=== PATIENT | male | born 1990 | race Caucasian/White ===

== ENCOUNTER 2022-11-12 09:54 | Emergency (ER) | payer OTHER, SELFPAY ==
[2022-11-12 10:01] VITALS: BP 143/89; PULSE 75; RESP 16; TEMP 36.5; O2SAT 98
--- NOTE | 2022-11-12 10:08 | ED.EYEPROB ---
HPI - Eye Problem General Chief complaint: Eye Problems Stated complaint: left eye pain Time Seen by Provider: 11/12/22 10:10 Source: patient Mode of arrival: ambulatory Limitations: no limitations History of Present Illness HPI Narrative: 32 y/o male presented for c/o left eye irritation with frequent tearing for 2 days. Denies injury or trauma. 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 Denies photophobia, purulent drainage, headache, or fb sensation. Pain ranges from 3-6/10. Not taking anything for symptoms. chief complaint: eye pain Related Data Allergies Allergy/AdvReac Type Severity Reaction Status Date / Time No Known Allergies Allergy Unverified 11/12/22 10:04 Review of Systems Review of Systems: CONSTITUTIONAL: Denies body aches, fever, chills EYES:Endorses left eye tearing; denies FB sensation, photophobia, swelling, redness, visual changes ENT: Denies rhinorrhea, congestion, sore throat, or otalgia. CARDIOVASCULAR: Denies chest pain, palpitations RESPIRATORY: Denies cough or dyspnea. SKIN: Denies rash, itching, or wounds. MUSCULOSKELETAL: Denies back pain, joint pain, or myalgia. NEUROLOGIC: Denies headache, numbness, tingling, or weakness. All systems reviewed & are unremarkable except as noted in HPI and below PMFSH Past Medical History Medical History (Updated 11/12/22 @ 11:01 by Mary Sofia APRN) No pertinent past medical history Comments At time of signature, I have reviewed and agree with nursing past medical, surgical, social and family history unless otherwise noted. Please see nursing chart for further information. There is no relevant family history pertinent to the presenting complaint Exam Narrative: GENERAL: Well-appearing HEAD: Normocephalic, atraumatic. EYES: Mild left conjunctival injection, Frequent tearing; No purulent drainage, eye lid swelling/redness. PERRLA, EOMI. Lid eversion shows <1mm brown corneal FB just lateral to pupil. No other corneal injury ENT: Mucous membranes pink and moist. No rhinorrhea. Throat normal. Uvula midline. CHEST: Clear to auscultation. HEART: Regular rate and rhythm. ABDOMEN: Soft, nontender, nondistended SKIN: Warm, dry, no rash. Normal skin turgor. NEURO: No focal deficits. Alert and oriented x3 Course Course Emergency Course: Patient is aware of diagnosis, understands and agrees to treatment plan. Anticipatory guidance given. Patient agrees to follow-up as directed and is aware of reasons to seek care at the emergency department. Portions of this record may have been created with voice recognition software Level of Care: Express Care Visit Vital Signs Vital signs: Vital Signs Temperature 97.7 F 11/12/22 10:01 Pulse Rate 75 11/12/22 10:01 Respiratory Rate 16 11/12/22 10:01 Blood Pressure 143/89 H 11/12/22 10:01 Pulse Oximetry 98 11/12/22 10:01 Temperature 97.7 F 11/12/22 10:01 Pulse Rate 75 11/12/22 10:01 Respiratory Rate 16 11/12/22 10:01 Blood Pressure 143/89 H 11/12/22 10:01 Pulse Oximetry 98 11/12/22 10:01 Procedures FB Removal Eye Foreign Body #1: Foreign Body Removal Date: 11/12/22 Time Out performed: Yes Location: eye (L) Topical anesthetic used: tetracaine Foreign body: other (unspecified) Technique: eye wash bottle and cotton tip swab Procedure performed under: other (brewer lamp) Patient tolerated procedure: well and no complications Complications: incomplete foreign body removal Foreign Body Removal Narrative: Unable to successfully remove the corneal FB. MDM - Eye Problem MDM Narrative Medical decision making narrative: Discussed physical exam findings. Patient is aware of unsuccessful removal of the left corneal FB. Patient is well appearing, he has an ophtho he will call tomorrow to schedule appt. Rx abx and Ketoralac. Advised supportive yoandy
== END 2022-11-12 10:39 | disposition home or self-care (01) ==
PROVIDERS: Emergency Provider Nurse Practitioner Family; PCP Internal Medicine
DX: T15.02XA Foreign body in cornea, left eye, initial encounter (principal); X58.XXXA Exposure to other specified factors, initial encounter
CPT/HCPCS: 65220; 99213; A9270; G0463

== ENCOUNTER 2023-03-22 12:19 | Emergency (ER) | payer OTHER, SELFPAY ==
--- NOTE | 2023-03-22 12:22 | ED.ABDPAIN ---
HPI - Abdominal Pain General Chief Complaint: Urogenital-Male Stated Complaint: Kidney stone Source: patient and RN notes reviewed Mode of arrival: ambulatory Limitations: no limitations History of Present Illness HPI narrative: Patient is a 32-year-old male who presents to the [facility] with complaints of left flank pain radiating into the left groin. The pain is a constant dull ache with intermittent stabbing pains that are moderately severe. Patient states that the pains started this morning in the left flank and has now radiated down into his left groin. He states that these symptoms are similar to that he experienced with a prior kidney stone. Patient states that he was seen in the ED for prior kidney stone and given medications and instructed to follow up outpatient. Patient states that he was given pain medication and Flomax at that time. He is requesting these medications today. He states that he would like to attempt to pass the stone on his own with help of medication. States that he does not want to go to the ED at this time. He reports decreased urination but states he is still able to urinate. He denies known hematuria. Denies recent fevers. He does report some nausea with emesis earlier today. Denies diarrhea. Related Data Allergies Allergy/AdvReac Type Severity Reaction Status Date / Time No Known Allergies Allergy Unverified 03/22/23 12:25 Review of Systems Review of Systems: CONSTITUTIONAL: Denies fever, chills, or sweats. EYES: Denies visual changes, redness, or discharge. ENT: Denies otalgia and sore throat. CARDIOVASCULAR: Denies chest pain, palpitations, or edema. RESPIRATORY: Denies cough or dyspnea. GASTROINTESTINAL: Reports left lower abdominal pain, nausea, vomiting. Denies diarrhea. GENITOURINARY: Denies dysuria or hematuria. Reports decreased urination. Reports left flank pain and left groin pain. SKIN: Denies rash or itching. MUSCULOSKELETAL: Denies joint pain or myalgia. NEUROLOGIC: Denies headache, numbness, or weakness. Pertinent positives per HPI. [facility] Past Medical History Medical History No pertinent past medical history Comments At the time of my signature, I reviewed and agree with the nursing past medical, surgical, social, and family history. There is no relevant family history pertinent to the patient complaint. Exam Narrative: GENERAL: This is a well-nourished, well-developed patient, in no apparent distress. HEAD: normocephalic, atraumatic. EYES: PERRL. Sclera clear/white. Vision is grossly intact. EARS: External ears normal, auditory canals clear and without drainage, TMs normal without perforation. Hearing grossly intact. NOSE: External nose normal with no obvious nasal discharge, nares without redness, no rhinorrhea. THROAT: Mucous membranes moist, posterior pharynx clear. NECK: Neck supple, non-tender without lymphadenopathy, masses or thyromegaly. CARDIOVASCULAR: Regular rate and rhythm without murmurs, gallops, or rubs. RESPIRATORY: Clear to auscultation. Breath sounds equal bilaterally. No wheezes, rales, or rhonchi. GASTROINTESTINAL: Abdomen soft, nondistended. Tenderness to left groin. Bowel sounds are active. No hepato-splenomegaly, or palpable masses. No guarding. SKIN: warm, intact with no suspicious lesions or rash, good texture and turgor. NEURO: awake, alert, and oriented to person, place and time. There were no obvious focal neurologic abnormalities. EXTREMITIES: No clubbing, cyanosis, or edema. No joint tenderness, effusion, or edema noted. BACK: Left flank tenderness. Course Course Level of Care: Express Care Visit Vital Signs Vital signs: Vital Signs Temperature 98.4 F 03/22/23 12:27 Pulse Rate 80 03/22/23 12:27 Respiratory Rate 20 03/22/23 12:27 Blood Pressure 162/92 H 03/22/23 12:27 Pulse Oximetry 98 03/22/23 12:27 Temperature 98.4 F 03/22/23 12:27 Pulse R
[2023-03-22 12:27] VITALS: BP 162/92; PULSE 80; RESP 20; TEMP 36.9; O2SAT 98
== END 2023-03-22 12:42 | disposition home or self-care (01) ==
PROVIDERS: Emergency Provider Nurse Practitioner; PCP Internal Medicine
DX: N20.0 Calculus of kidney (principal)
CPT/HCPCS: 81003; 99213; G0463

== ENCOUNTER 2023-03-22 13:02 | Emergency (ER) | payer OTHER, SELFPAY ==
--- NOTE | ~2023-03-22 | CT_ITS ---
EXAMINATION: CT abdomen pelvis wo con DATE: 03/22/2023 13:46 INDICATION: Left lower quadrant abdominal pain. Nausea. TECHNIQUE: Computed tomography (CT) of the abdomen and pelvis was performed without intravenous contr ast. Automated exposure control and iterative reconstruction technique were employed. The dose-length product was 1704.25 mGy-cm. COMPARISON: CT abdomen and pelvis 09/23/2018 FINDINGS: The visualized portions of the lung bases demonstrate minimal atelectasis. No pleural effus ion. The heart size is normal. No pericardial effusion. There is diffuse hepatic steatosis. The gallb ladder, spleen, pancreas, adrenal glands, and right kidney are normal. There is mild left hydronephro sis. There is a 5 mm stone in proximal left ureter. There are no dilated loops of bowel. The appendix is normal. There are no pathologically enlarged lymph nodes. There is no free intraperitoneal fluid. There is mild thoracic and lumbar spondylosis. IMPRESSION: 1. 5 mm stone in proximal left ureter with mild left hydronephrosis. Reviewed, dictated and finalized at location E.
[2023-03-22 13:03] VITALS: BP 195/94; PULSE 78; RESP 18; TEMP 36.4; O2SAT 100
[2023-03-22 13:23] LABS: Basophils Absolute Auto 0.1 K/mm3 (0.0-0.1); Basophils Percent Auto 0.3 % (0.2-1.2); Eosinophils Percent Auto 0.1 % (0-4.4); Hematocrit 48.3 % (42.0-52.0); Hemoglobin 16.8 g/dL (14.0-18.0); Immature Granulocyte Absolute 0.12 K/mm3 (0.00-0.031); Immature Granulocyte Percent A 0.7 % (0-0.5); Lymphocytes Percent Auto 14.9 % (18.3-44.2); Mean Corpuscular HGB Conc 34.8 g/dl (32-36); Mean Corpuscular Hemoglobin 30.1 pg (26-34); Mean Corpuscular Volume 86.4 fl (80-100); Mean Platelet Volume 9.5 fl (7.4-10.4); Monocytes Absolute Auto 0.7 K/mm3 (0.1-0.6); Monocytes Percent Auto 3.7 % (2.6-8.5); Neutrophils Absolute Auto 14.1 K/mm3 (1.3-6.7); Neutrophils Percent Auto 80.3 % (45.5-73.1); Platelet Count Result 276 k/mm3 (150-375); Red Blood Count 5.59 M/mm3 (4.6-6.20); Red Cell Distribution Width 12.6 % (11.5-14.5); White Blood Count 17.5 K/mm3 (4.5-10.0)
[2023-03-22] MEDS: ONDANSETRON INJ 4 MG/2 ML VIAL IV PUSH (13:23)
[2023-03-22] MEDS: MORPHINE SULFATE (*CRX) 4 MG/ML INJ IV PUSH (13:23)
[2023-03-22 13:33] LABS: Alanine Aminotransferase 106 U/L (6-50); Albumin Level 5.1 g/dL (3.5-5.1); Alkaline Phosphatase 66 U/L (38-126); Anion Gap 11 mmol/L (8-16); Aspartate Amino Transferase 60 U/L (17-59); Bilirubin,Total 0.8 mg/dL (0.2-1.3); Blood Urea Nitrogen 12 mg/dL (9-20); Calcium 9.6 mg/dL (8.4-10.2); Carbon Dioxide 26 mmol/L (22-30); Chloride 103 mmol/L (98-107); Estimated CRCL calculation 127 ml/min; Estimated Glomerular Filt Rate > 60; Glucose 143 mg/dL (65-110); Potassium 3.7 mmol/L (3.4-5.0); Sodium 140 mmol/L (137-145)
[2023-03-22] MEDS: SODIUM CHLORIDE 0.9% IV 1,000 ML 150 ML IV CONT (13:33)
[2023-03-22] MEDS: KETOROLAC 15 MG/ML VIAL (*BKC) IV PUSH (14:13)
--- NOTE | 2023-03-22 15:03 | ED.GENADULT ---
HPI - General Adult General Chief complaint: Urogenital-Male Stated complaint: I think im passing a kidney stone Time Seen by Provider: 03/22/23 13:14 Source: patient Mode of arrival: ambulatory Limitations: no limitations History of Present Illness HPI narrative: 32-year-old with a history of kidney stone presents to the ER with complaints of left flank pain which started this morning around 7:30 AM she states that pain is radiating from flank to his groin area. He complains of mild nausea but no significant vomiting. He denies any fever or chills. He states his urine is dark in color. Onset (ago): hour(s) (6) Location: abdomen Radiation: other (Groin) Severity: moderate Quality: sharp Pain Consistency: constant Relieving factors: none Exacerbating factors: none Associated symptoms: nausea/vomiting Treatments prior to arrival: none Related Data Allergies Allergy/AdvReac Type Severity Reaction Status Date / Time No Known Allergies Allergy Unverified 03/22/23 13:02 Review of Systems Review of Systems: All systems reviewed & are unremarkable except as noted in HPI and below Constitutional: Constitutional: Reports no additional constitutional complaints Eyes: Eyes: Reports no additional eye complaints ENT: Reports system reviewed and no additional complaints, except as documented Cardiovascular: Cardiovascular: Reports no additional cardiovascular complaints Respiratory: Respiratory: Reports no additional respiratory complaints Gastrointestinal: Gastrointestinal: Reports as per HPI Musculoskeletal: Musculoskeletal: Reports no additional musculoskeletal complaints Neurologic: Reports system reviewed and no additional complaints, except as documented PMFSH Past Medical History Medical History No pertinent past medical history Exam Narrative: GENERAL: Well-appearing, well-nourished, and in no acute distress. HEAD: Normocephalic, atraumatic. EYES: PERRLA and EOMI. ENT: Nares clear, no rhinorrhea or epistaxis. Mucous membranes moist. NECK: Supple. CHEST: Clear to auscultation. No respiratory distress. HEART: Regular rate and rhythm. No murmur heard. Normal peripheral pulses. ABDOMEN: Soft, nontender, nondistended, normal active bowel sounds. EXTREMITIES: Normal range of motion. No edema. SKIN: Warm, dry, no rash. NEURO: No focal deficits. Alert and oriented x3. PSYCH: Normal mood and affect. Course Course Emergency Course: He did receive IV morphine and Toradol for pain which completely his chest pain did inform him about his lab work and CT findings. Advised him to drink plenty of fluids as tolerated take pain medication as needed. Vital Signs Vital signs: Vital Signs Temperature 36.4 C 03/22/23 13:03 Pulse Rate 78 03/22/23 13:03 Respiratory Rate 18 03/22/23 13:03 Blood Pressure 195/94 H 03/22/23 13:03 Pulse Oximetry 100 03/22/23 13:03 Oxygen Delivery Room Air 03/22/23 13:03 Temperature 36.4 C 03/22/23 13:03 Pulse Rate 78 03/22/23 13:03 Respiratory Rate 18 03/22/23 13:03 Blood Pressure 195/94 H 03/22/23 13:03 Pulse Oximetry 100 03/22/23 13:03 Oxygen Delivery Room Air 03/22/23 13:03 Medical Decision Making MDM Narrative Medical decision making narrative: 32-year-old otherwise healthy sudden onset of left flank pain radiating to the groin appears to be a ureteral stone we will do lab work, CT, control his pain with IV morphine and Toradol. Differential Diagnosis Differential Diagnosis: Kidney stone, pyelonephritis, Vital Signs Vital Signs: Vital Signs Temperature 36.4 C 03/22/23 13:03 Pulse Rate 78 03/22/23 13:03 Respiratory Rate 18 03/22/23 13:03 Blood Pressure 195/94 H 03/22/23 13:03 Pulse Oximetry 100 03/22/23 13:03 Oxygen Delivery Room Air 03/22/23 13:03 Temperature 36.4 C 03/22/23 13:03 Pulse Rate 78 03/22/23 13:03 Respiratory Rate 18
[2023-03-22 15:08] LABS: Add Urine Microscopic? YES; Appearance Urine Cloudy (Clear); Bacteria Urine None Seen /hpf; Bilirubin Urine Negative (Negative); Blood Urine 3+ (Negative); Color Urine Dark Yellow (Yellow); Glucose Urine UA Negative (Negative); Ketones Urine Negative (Negative); Leukocyte Esterase Ur Trace LEU/UL (Negative); Nitrate Urine Negative (Negative); Protein Urine 1+ mg/dL (Negative); Specific Grav Ur 1.028 (1.001-1.035); Squamous Epithelial Cell Urine None seen /hpf (Few); Urobilinogen Urine 0.2 mg/dL (<2.0); WBC Urine 0-5 /hpf
[2023-03-22 15:19] VITALS: PULSE 70; RESP 20; O2SAT 96
== END 2023-03-22 15:24 | disposition home or self-care (01) ==
PROVIDERS: Emergency Provider Family Medicine; PCP Internal Medicine
DX: N13.2 Hydronephrosis with renal and ureteral calculous obstruction (principal); I10 Essential (primary) hypertension
CPT/HCPCS: 36415; 74176; 80053; 81001; 81003; 85025; 96361; 96374; 96375; 99284; J1885; J2270; J2405; J7030

== ENCOUNTER 2023-05-19 10:05 | Emergency (ER) | payer OTHER, SELFPAY ==
--- NOTE | 2023-05-19 10:14 | ED.MALEGU ---
HPI - Male Genitourinary General Chief complaint: Urogenital-Male Stated complaint: uti Time Seen by Provider: 05/19/23 10:30 Source: patient Mode of arrival: ambulatory Limitations: no limitations History of Present Illness HPI Narrative: Sampson is a 33-year-old male patient presenting to the clinic today with complaints of possible urinary tract infection. He reports he was seen earlier this month and given prescription for Bactrim for a UTI. States he did a tele health visit that time. At the end of March he had a kidney stone in his ureter. Was given Flomax, hydrocodone, and ketorolac. Reports that he is no longer having pain but did not witness passing a stone at that time. States he is having burning with urination and feeling as though he is have no urinate frequently. Has been taking azo as well. Reports that he did not take the Bactrim as directed. He denies any flank pain or abdominal pain. No concern for any STIs. Related Data Home Medications Medication Instructions Recorded Confirmed No Home Medications 05/19/23 05/19/23 Allergies Allergy/AdvReac Type Severity Reaction Status Date / Time No Known Allergies Allergy Verified 05/19/23 10:22 Review of Systems Review of Systems: Pertinent positives per HPI. Patient denies any fever, chills, rash, headache, visual changes, dizziness, cough, runny nose, sore throat, shortness of breath, chest pain, palpitations, nausea, vomiting, diarrhea, constipation, abdominal pain PMFSH Past Medical History Medical History No pertinent past medical history Comments At the time of my signature, I reviewed and agree with the nursing past medical, surgical, social, and family history. There is no relevant family history pertinent to the patient complaint. Exam Narrative: General: Well-developed, well nourished, in no apparent distress. Head: Normocephalic, atraumatic. Cardio: Regular rate and rhythm, s1 and s2 normal, no murmur appreciated. Resp: Clear to auscultation bilaterally, no rhonchi, rales, wheezing or rubs. Abdomen: Soft, pliable, bowel sounds present in all quadrants, non-tender to palpation, no organomegly, no CVAT tenderness. Course Course Emergency Course: Portions of this record may have been created with voice recognition software. Level of Care: Express Care Visit Vital Signs Vital signs: Vital signs reviewed MDM - Male Genitourinary MDM Narrative Medical decision making narrative: At the time of visit patient is resting comfortably on the exam table. Patient appears to be nontoxic. Supportive measures were discussed with the patient and they voiced understanding discharge instructions and agrees to treatment plan. Return precautions reviewed Differential Diagnosis Differential diagnosis: Likely urinary tract infection, urethritis and other (Kidney stone, ureteral stone, STI) Discharge Plan Discharge Clinical Impression: Dysuria Patient Disposition: Home, Self-Care Condition: Stable Instructions: Antibiotic Form, Dysuria (ED) Additional Instructions: UA shows 1+ blood and trace of protein. We will send for culture Recommend continuing azo as needed for discomfort Increase fluids and stay well hydrated Wipe front to back. May use wet wipes. Avoid tub baths If sexually active- pee before and after intercourse. Wear cotton panties Avoid tight clothing up against the genitals Follow up with your PCP in 1 week if symptoms persist-may need further evaluation to determine if you have passed the kidney stone. An obstructed stone can cause increased risk for infection and injury Prescriptions: No Action No Home Medications Follow-up/Referrals: Anna,MD Buddy [Primary Care Provider] - Time of Disposition: 10:41 Quality NIHSS Nursing Documentation ED NIHSS nursing documentation: reviewed/agree
[2023-05-19 10:26] VITALS: BP 153/85; PULSE 85; RESP 16; TEMP 36.5; O2SAT 97
== END 2023-05-19 10:45 | disposition home or self-care (01) ==
PROVIDERS: Emergency Provider Nurse Practitioner Family; PCP Internal Medicine
DX: R30.0 Dysuria (principal)
CPT/HCPCS: 81003; 87086; 87088; 99213; G0463

== ENCOUNTER 2023-08-05 19:04 | Emergency (ER) | payer OTHER, SELFPAY ==
[2023-08-05 19:10] VITALS: BP 158/95; PULSE 76; RESP 16; TEMP 36.1; O2SAT 98
--- NOTE | 2023-08-05 19:33 | ED.URI ---
HPI - URI/Sore Throat General Chief Complaint: Upper Respiratory Infection Stated Complaint: Sore Throat Time Seen by Provider: 08/05/23 19:25 Source: patient Mode of arrival: ambulatory Limitations: no limitations History of Present Illness HPI Narrative: 33 yo M presents with c/o nasal congestion for 3 days. States he has had a lot PND. bad sore throat started yesterday. Afebrile. Feels sometimes like throat is swollen and he cant swallow. Denies N/V. All systems reviewed and negative except as noted above. Related Data Allergies Allergy/AdvReac Type Severity Reaction Status Date / Time No Known Allergies Allergy Verified 05/19/23 10:22 Review of Systems Review of Systems: CONSTITUTIONAL: Denies fever, chills, or sweats. EYES: Denies visual changes, redness, or discharge. ENT: Reports rhinorrhea, congestion, postnasal drainage, sore throat. Denies otalgia. CARDIOVASCULAR: Denies chest pain, palpitations, or edema. RESPIRATORY: Denies cough or dyspnea. GASTROINTESTINAL: Denies abdominal pain, nausea, vomiting, or diarrhea. GENITOURINARY: Denies dysuria or hematuria. SKIN: Denies rash or itching. MUSCULOSKELETAL: Denies back pain, joint pain, or myalgia. NEUROLOGIC: Denies headache, numbness, or weakness. PSYCHIATRIC: Denies anxiety or depression. All other systems reviewed are negative, except as documented in HPI. [facility] Past Medical History Medical History No pertinent past medical history Comments At time of signature, agree with nursing past medical, surgical, social and family history. There is no relevant family history pertinent to the presenting complaint. Exam Narrative: GENERAL: This is a well-nourished, well-developed patient, in no apparent distress. HEAD: normocephalic, atraumatic. EYES: PERRL. Sclera clear/white. Vision is grossly intact. EARS: External ears normal, auditory canals clear and without drainage, TMs normal without perforation. Hearing grossly intact. NOSE: External nose normal with clear nasal drainage, erythema and swelling to bilateral nares. THROAT: Mucous membranes moist, erythema with swelling. No exudates. Postnasal drainage noted. NECK: Neck supple, non-tender without lymphadenopathy, masses or thyromegaly. CARDIOVASCULAR: Regular rate and rhythm without murmurs, gallops, or rubs. RESPIRATORY: Clear to auscultation. Breath sounds equal bilaterally. No wheezes, rales, or rhonchi. SKIN: warm, Dry, intact with no suspicious lesions or rash, good texture and turgor. NEURO: awake, alert, and oriented to person, place and time. There were no obvious focal neurologic abnormalities. EXTREMITIES: No joint tenderness, effusion, or edema noted. Course Course Level of Care: Express Care Visit Vital Signs Vital signs: Vital Signs Temperature 36.1 C L 08/05/23 19:10 Pulse Rate 76 08/05/23 19:10 Respiratory Rate 16 08/05/23 19:10 Blood Pressure 158/95 H 08/05/23 19:10 Pulse Oximetry 98 08/05/23 19:10 Temperature 36.1 C L 08/05/23 19:10 Pulse Rate 76 08/05/23 19:10 Respiratory Rate 16 08/05/23 19:10 Blood Pressure 158/95 H 08/05/23 19:10 Pulse Oximetry 98 08/05/23 19:10 Reviewed, blood pressure elevated today. Recommend follow-up from appointment with primary care physician. MDM - URI/Sore Throat MDM Narrative Medical decision making narrative: Negative rapid strep test. Patient recently took Augmentin for 7 days from a telehealth visit. Possible that strep test as an accurate due to recent antibiotic use. Due to patient's exam findings will prescribe cefdinir times 10 days. Recommend a daily antihistamine. Will prescribe prednisone to treat swelling and allergy symptoms. Patient is aware of diagnosis, understands and agrees to treatment plan. Anticipatory guidance given. Patient agrees to follow-up as directed and is aware of reasons to seek care at the emergency departm
== END 2023-08-05 19:35 | disposition home or self-care (01) ==
PROVIDERS: Emergency Provider Nurse Practitioner Family
DX: J02.9 Acute pharyngitis, unspecified (principal); J30.2 Other seasonal allergic rhinitis
CPT/HCPCS: 87081; 87880; 99213; G0463

== ENCOUNTER 2023-09-28 08:25 | Outpatient (CLI) | payer OTHER, SELFPAY ==
[2023-09-28 18:32] LABS: Basophils Absolute Auto 0.1 K/mm3 (0.0-0.1); Basophils Percent Auto 0.7 % (0.2-1.2); Eosinophils Absolute Auto 0.3 K/mm3 (0-0.3); Eosinophils Percent Auto 2.1 % (0-4.4); Hematocrit 45.6 % (42.0-52.0); Hemoglobin 15.6 g/dL (14.0-18.0); Immature Granulocyte Absolute 0.02 K/mm3 (0.00-0.031); Immature Granulocyte Percent A 0.2 % (0-0.5); Lymphocytes Absolute Auto 4.71 K/mm3 (0.9-3.2); Lymphocytes Percent Auto 40.3 % (18.3-44.2); Mean Corpuscular HGB Conc 34.2 g/dl (32-36); Mean Corpuscular Hemoglobin 30.4 pg (26-34); Mean Corpuscular Volume 88.9 fl (80-100); Mean Platelet Volume 10.1 fl (7.4-10.4); Monocytes Absolute Auto 0.7 K/mm3 (0.1-0.6); Neutrophils Absolute Auto 5.9 K/mm3 (1.3-6.7); Neutrophils Percent Auto 50.7 % (45.5-73.1); Platelet Count Result 224 k/mm3 (150-375); Red Blood Count 5.13 M/mm3 (4.6-6.20); Red Cell Distribution Width 12.5 % (11.5-14.5); White Blood Count 11.7 K/mm3 (4.5-10.0)
[2023-09-28 18:37] LABS: Alanine Aminotransferase 79 U/L (6-50); Albumin Level 4.3 g/dL (3.5-5.1); Alkaline Phosphatase 70 U/L (38-126); Anion Gap 6 mmol/L (4-12); Aspartate Amino Transferase 57 U/L (17-59); Blood Urea Nitrogen 13 mg/dL (9-20); Calcium 9.3 mg/dL (8.4-10.2); Carbon Dioxide 28 mmol/L (22-30); Chloride 105 mmol/L (98-107); Cholesterol 155 mg/dL (0-200); Estimated Glomerular Filt Rate > 60; Glucose 93 mg/dL (65-110); HDL Direct 33 mg/dL; Potassium 3.8 mmol/L (3.4-5.0); Sodium 139 mmol/L (137-145); Triglycerides 126 mg/dL (<150)
[2023-09-28 18:55] LABS: LDL Cholesterol Direct 105 mg/dL
[2023-09-28 18:59] LABS: Vitamin D 25 Hydroxy 25.6 ng/mL
== END 2023-09-28 08:26 | disposition home or self-care (01) ==
LOC: ANHGOSHLAB 08:26
PROVIDERS: PCP Family Medicine; Visit Provider Family Medicine
DX: R73.9 Hyperglycemia, unspecified (principal); R53.83 Other fatigue; E55.9 Vitamin D deficiency, unspecified; Z13.220 Encounter for screening for lipoid disorders; Z13.228 Encounter for screening for other metabolic disorders
CPT/HCPCS: 36415; 80053; 80061; 82306; 83036; 85025

== ENCOUNTER 2023-12-11 08:23 | Outpatient (CLI) | payer OTHER, SELFPAY ==
[2023-12-11 16:51] LABS: Alanine Aminotransferase 89 U/L (6-50); Albumin Level 4.4 g/dL (3.5-5.1); Alkaline Phosphatase 73 U/L (38-126); Anion Gap 12 mmol/L (4-12); Aspartate Amino Transferase 73 U/L (17-59); Bilirubin,Total 0.7 mg/dL (0.2-1.3); Blood Urea Nitrogen 15 mg/dL (9-20); Calcium 9.2 mg/dL (8.4-10.2); Carbon Dioxide 28 mmol/L (22-30); Chloride 100 mmol/L (98-107); Estimated Glomerular Filt Rate > 60; Glucose 128 mg/dL (65-110); Potassium 3.7 mmol/L (3.4-5.0); Sodium 140 mmol/L (137-145)
== END 2023-12-11 08:24 | disposition home or self-care (01) ==
LOC: ANHGOSHLAB 08:24
PROVIDERS: PCP Family Medicine; Visit Provider Family Medicine
DX: Z13.228 Encounter for screening for other metabolic disorders (principal)
CPT/HCPCS: 36415; 80053

== ENCOUNTER 2024-02-04 08:29 | Outpatient (CLI) | payer OTHER, SELFPAY ==
--- NOTE | ~2024-02-04 | XR_ITS ---
XR abdomen/kub 1V Ordering provider: Misha Garland MD History: . follow up for kidney stones, no symptoms today . Comparison: September 01, 2018 FINDINGS: BOWEL: Nonobstructive bowel gas pattern. ORGANOMEGALY: None. SIGNIFICANT PATHOLOGIC CALCIFICATIONS: None. OTHER: No free air is seen under the diaphragm. IMPRESSION: NO ACUTE ABDOMINAL FINDINGS. Reviewed, dictated and finalized at location A.
== END 2024-02-04 08:30 | disposition home or self-care (01) ==
LOC: MICIMG 08:30
PROVIDERS: PCP Family Medicine; Visit Provider Urology
DX: Z87.442 Personal history of urinary calculi (principal)
CPT/HCPCS: 74018

== ENCOUNTER 2024-07-21 08:09 | Outpatient (CLI) | payer OTHER, SELFPAY ==
[2024-07-21 14:01] LABS: Hematocrit 47.5 % (42.0-52.0); Hemoglobin 16.1 g/dL (14.0-18.0); Mean Corpuscular HGB Conc 33.9 g/dl (32-36); Mean Corpuscular Volume 88.5 fl (80-100); Mean Platelet Volume 9.5 fl (7.4-10.4); Platelet Count Result 319 k/mm3 (150-375); Red Blood Count 5.37 M/mm3 (4.6-6.20); Red Cell Distribution Width 12.8 % (11.5-14.5); White Blood Count 16.8 K/mm3 (4.5-10.0)
[2024-07-21 14:56] LABS: Alanine Aminotransferase 50 U/L (6-50); Albumin Level 4.1 g/dL (3.5-5.1); Alkaline Phosphatase 65 U/L (38-126); Anion Gap 6 mmol/L (4-12); Aspartate Amino Transferase 96 U/L (17-59); Bilirubin,Total 0.7 mg/dL (0.2-1.3); Blood Urea Nitrogen 18 mg/dL (9-20); Calcium 8.9 mg/dL (8.4-10.2); Carbon Dioxide 32 mmol/L (22-30); Chloride 102 mmol/L (98-107); Cholesterol 139 mg/dL (0-200); Estimated Glomerular Filt Rate > 60; Glucose 85 mg/dL (65-110); HDL Direct 35 mg/dL; Potassium 4.1 mmol/L (3.4-5.0); Sodium 140 mmol/L (137-145); Triglycerides 215 mg/dL (<150)
[2024-07-21 15:08] LABS: LDL Cholesterol Direct 59 mg/dL
[2024-07-21 21:48] LABS: Hemoglobin A1C 5.4 % (<5.7)
== END 2024-07-21 08:10 | disposition home or self-care (01) ==
LOC: ANHGOSHLAB 08:10
PROVIDERS: PCP Family Medicine; Visit Provider Family Medicine
DX: R73.09 Other abnormal glucose (principal); I10 Essential (primary) hypertension; E66.9 Obesity, unspecified; E55.9 Vitamin D deficiency, unspecified; K75.81 Nonalcoholic steatohepatitis (NASH); R74.8 Abnormal levels of other serum enzymes; Z79.899 Other long term (current) drug therapy
CPT/HCPCS: 36415; 80053; 80061; 82652; 83036; 84443; 85027

== ENCOUNTER 2024-07-31 08:48 | Outpatient (CLI) | payer OTHER, SELFPAY ==
--- OUTSIDE RECORDS SUMMARY | 2024-07-31 09:35 | XMS_ITS | Clinical Summary ---
Author Organization [facility] A Address [address] [place] [address] Care Team Providers Care Interactive Marketing Strategist Name Role Phone Buddy Castillo MD Primary Care Provider [phone] Allergies No known active allergies Medications fluticasone (FLONASE) 50 mcg/actuation nasal spray inhale 2 spray by Intranasal route every day in each nostril 1 Bottle 5 5 Active ibuprofen (ADVIL,MOTRIN) 200 mg tab/capIndicati ons:knee pain Take by mouth 3 (three) times a day before meals Active cholecalciferol (VITAMIN D-3) 2000 unit tablet Take 1 tablet (2,000 Units total) by mouth daily 0 Active Active Problems Problem Noted Date Diagnosed Date Chronic pain of right ankle 12/01/2021 Assessment & Plan (12/01/2021 3:30 PM CDT): Probably chronic Achilles tendinitis. Continues night splint. Trial of Aleve 1-2 tablets p.o. b.i.d. with food for 2 weeks and warned of GI and cardiovascular side effects. Podiatry referral. Weight loss recommended. Nephrolithiasis 11/18/2018 Assessment & Plan (11/18/2018 4:44 PM CDT): Avoid dehydration with plenty of water intake, low-sodium diet, reduce animal products in his diet. Morbid obesity with BMI of 40.0-44.9, adult 10/20 Assessment & Plan (12/04/2022 3:45 PM CDT): Patient is encouraged to lose weight with a combination of caloric reduction and increased exercise. Various strategies discussed. The long-term risks associated with continued morbid obesity discussed. Assessment & Plan (12/01/2021 3:28 PM CDT): Patient is encouraged to lose weight with a combination of caloric reduction and increased exercise. Various strategies discussed. The long-term risks associated with continued morbid obesity discussed. Assessment & Plan (10/02/2021 11:25 AM CDT): Patient is encouraged to lose weight with a combination of caloric reduction and increased exercise. Various strategies discussed. The long-term risks associated with continued morbid obesity discussed. Assessment & Plan (11/30/2020 6:07 PM CDT): Patient is encouraged to lose weight with a combination of caloric reduction and increased exercise. Various strategies discussed. The long-term risks associated with continued morbid obesity discussed. Assessment & Plan (04/11/2020 5:40 PM SPECIAL DISTRIBUTION CLERK): Patient is encouraged to lose weight with a combination of caloric reduction and increased exercise. Various strategies discussed. The long-term risks associated with continued morbid obesity discussed. Assessment & Plan (11/25/2019 4:56 PM CDT): Patient is encouraged to lose weight with a combination of caloric reduction and increased exercise. Various strategies discussed. The long-term risks associated with continued morbid obesity discussed. Assessment & Plan (11/18/2018 4:44 PM CDT): Patient is encouraged to lose weight with a combination of caloric reduction and increased exercise. Various strategies discussed. The long-term risks associated with continued morbid obesity discussed. Assessment & Plan (11/15/2017 3:35 PM CDT): Patient is encouraged to lose weight with a combination of caloric reduction and increased exercise. Various strategies discussed. The long-term risks associated with continued morbid obesity discussed. Hypercalcemia 11/10/2016 Assessment & Plan (11/25/2019 4:56 PM CDT): Remains normalized. Assessment & Plan (11/18/2018 4:43 PM CDT): Remains normalized with replacement of vitamin-D. Assessment & Plan (11/15/2017 3:34 PM CDT): Remains normalized. Assessment & Plan (11/10/2016 1:31 PM CDT): Remains normal. Repeat PTH and vitamin-D level before next visit. Abnormal transaminases 11/10/2016 Overview (11/18/2018): Neg hepatitis panel. Iron panel normal. CHRISSY panel neg. US with fatty liver. Assessment & Plan (12/04/2022 3:44 PM CDT): Weight loss recommended for fatty liver. Assessment & Plan (12/01/2021 3:27 PM CDT): Weight loss recommended for fatty liver. Check enzymes again before next visit. Assessment & Plan (11/25/2019 4:56 PM CDT): Weight loss recommended. Long-term risks posed to his health with failure to do so discussed at length. Assessment & Plan (11/18/2018 4:45 PM CDT): Continue efforts at weight loss and he is congratulated on his success so far. Assessment & Plan (08/13/2018 3:36 PM CDT): Elevated transaminases with sono fatty liver, CHRISSY and iron studies neg,BMI 42, no hepatotoxins. Will get viral panel. Discussed NAFLD and progression to BENITEZ with ESLD. Also discussed risk of colon ca. Advised drastic weight loss. Will call him when we get viarl panel and return prn Assessment & Plan (11/15/2017 3:34 PM CDT): Likely fatty liver. Confirm with ultrasound. Has had previous negative hepatitis panel. Check iron panel and CHRISSY panel. Call back for results. Repeat hepatic function panel in 6 months. Consider referral if worsens. Weight loss stressed and the long-term risks posed to his health including possible cirrhosis and liver failure discussed at length. Avoid alcohol. Assessment & Plan (11/10/2016 1:31 PM CDT): Weight loss recommended. Hepatitis panel previously negative. Healthcare maintenance 11/10/2016 Assessment & Plan (12/04/2022 3:45 PM CDT): Flu shot each February. Tetanus booster every 10 years. COVID booster when available. Diet exercise for weight loss. Will see him back in 1 year for physical fasting lab sooner if needed. Assessment & Plan (12/01/2021 3:28 PM CDT): Flu shot each February. Tetanus booster every 10 years. COVID vaccine completed. Diet exercise weight loss discussed. Will see him back in 1 year for physical fasting lab sooner if needed. Assessment & Plan (11/30/2020 6:07 PM CDT): Have recommend he work on increasing exercise and finding a counselor for his current mood symptoms. If he fails to improve could consider medication for possible depression verses ADD in the future. Flu shot each February. Tetanus booster every 10 years. Will see him back in 1 year with physical and fasting lab sooner if needed. Assessment & Plan (11/25/2019 4:56 PM CDT): Flu shot each February. Tetanus booster every 10 years. Will see him back in 4 months for blood pressure check sooner if needed. Assessment & Plan (11/18/2018 4:44 PM CDT): Flu shot each February. Tetanus booster every 10 years. Weight loss diet exercise. Will see him back in 1 year for physical and fasting lab sooner if needed. Assessment & Plan (11/15/2017 3:35 PM CDT): Flu shot each February. Tetanus booster every 10 years. Weight loss discussed. We will see him back in one year sooner if needed. Assessment & Plan (11/10/2016 1:32 PM CDT): Flu shot each February. Tetanus booster every 10 years. Lose weight diet exercise. Return for another physical exam in 1 year with fasting lab sooner if needed. Vitamin D deficiency 10/23/2013 Overview (08/25/2016): Vitamin D deficiency Assessment & Plan (12/04/2022 3:45 PM CDT): Restart vitamin-D supplementation and check level in 1 year. Assessment & Plan (12/01/2021 3:27 PM CDT): Continue current supplementation and check level in 1 year. Assessment & Plan (11/30/2020 6:06 PM CDT): Would recommend starting 2000 units vitamin-D daily and checking level in 1 year. Assessment & Plan (04/11/2020 5:39 PM SPECIAL DISTRIBUTION CLERK): Continue current supplementation and check level in 1 year. Assessment & Plan (11/25/2019 4:55 PM CDT): Continue current supplementation and check level in 1 year. Assessment & Plan (11/18/2018 4:43 PM CDT): Decrease vitamin D to 3 or 4000 units daily with his recent kidney stone and check level before next visit. Assessment & Plan (11/15/2017 3:33 PM CDT): He needs to be more regular with his vitamin-D intake and will check another level before next visit. Assessment & Plan (11/10/2016 1:31 PM CDT): Continue supplementation and check level before next visit. Impaired fasting glucose 10/04/2013 Overview (08/23/2016): IMPAIRED FASTING GLUCOSE Assessment & Plan (12/04/2022 3:45 PM CDT): Patient should reduce sugar and carbs, increase exercise, maintain proper body weight, and will check an A1c once or twice yearly. Assessment & Plan (12/01/2021 3:27 PM CDT): Patient should reduce sugar and carbs, increase exercise, maintain proper body weight, and will check an A1c once or twice yearly. Assessment & Plan (10/02/2021 11:25 AM CDT): Check fasting blood sugar before next visit. Assessment & Plan (11/30/2020 6:06 PM CDT): Patient should reduce sugar and carbs, increase exercise, maintain proper body weight, and will check an A1c once or twice yearly. Assessment & Plan (04/11/2020 5:39 PM SPECIAL DISTRIBUTION CLERK): Patient should reduce sugar and carbs, increase exercise, maintain proper body weight, and will check an A1c once or twice yearly. Assessment & Plan (11/25/2019 4:55 PM CDT): Patient should reduce sugar and carbs, increase exercise, maintain proper body weight, and will check an A1c once or twice yearly. Assessment & Plan (11/18/2018 4:43 PM CDT): Patient should reduce sugar and carbs, increase exercise, maintain proper body weight, and will check an A1c once or twice yearly. Assessment & Plan (11/15/2017 3:32 PM CDT): Patient should reduce sugar and carbs, increase exercise, maintain proper body weight, and will check an A1c once or twice yearly. Assessment & Plan (11/10/2016 1:30 PM CDT): Patient should reduce sugar and carbs, increase exercise, maintain proper body weight, and will check an A1c once or twice yearly. Atopic rhinitis 10/04/2013 Overview (08/25/2016): ALLERGIC RHINITIS NOS Assessment & Plan (11/25/2019 4:56 PM CDT): Fluticasone with good control. Assessment & Plan (11/15/2017 3:33 PM CDT): Continue Flonase and Zyrtec. Assessment & Plan (11/10/2016 1:31 PM CDT): Flonase p.r.n. Hyperlipidemia 10/04/2013 Overview (08/25/2016): HYPERLIPIDEMIA NEC/NOS Assessment & Plan (12/04/2022 3:45 PM CDT): Low risk for ASCVD and therefore recommend diet exercise. Assessment & Plan (12/01/2021 3:27 PM CDT): Low risk for ASCVD and therefore recommend diet exercise. Assessment & Plan (10/02/2021 11:25 AM CDT): Diet exercise and check fasting lipid panel before next visit. Assessment & Plan (11/30/2020 6:06 PM CDT): Low risk for ASCVD and therefore recommend further efforts at diet exercise. Assessment & Plan (04/11/2020 5:40 PM SPECIAL DISTRIBUTION CLERK): Low risk for ASCVD and therefore recommend continue diet exercise. Assessment & Plan (11/25/2019 4:56 PM CDT): Low risk for ASCVD and therefore recommend diet exercise. Assessment & Plan (11/18/2018 4:43 PM CDT): Continue diet exercise. Assessment & Plan (11/15/2017 3:33 PM CDT): Diet and exercise and weight loss recommended. Assessment & Plan (11/10/2016 1:31 PM CDT): Diet exercise and weight loss recommended. Prehypertension 09/25/2012 Overview (08/25/2016): Prehypertension Assessment & Plan (10/02/2021 11:25 AM CDT): Blood pressure better here in the office today. Let us focus on reduction of salt, increase exercise and weight loss. Continue monitoring blood pressure at home record and bring to next visit. Bring in blood pressure machine for verification of accuracy. Assessment & Plan (11/30/2020 6:06 PM CDT): Avoid salt, increase exercise, lose weight. Assessment & Plan (04/11/2020 5:40 PM SPECIAL DISTRIBUTION CLERK): Blood pressures improved with weight loss. Avoid salt, increase exercise continue to lose weight, check blood pressure at home call back if routinely near 140/90. Assessment & Plan (11/25/2019 4:55 PM CDT): Avoid salt, increase exercise, lose weight. Check blood pressure at home record and bring to next visit. Repeat visit in 4 months for determination of medication need. Assessment & Plan (11/15/2017 3:33 PM CDT): Avoid salt, increase exercise, lose weight. Check blood pressure at home call back if near 140/90. Assessment & Plan (11/10/2016 1:31 PM CDT): Avoid salt, increase exercise, lose weight. Resolved Problems Problem Noted Date Diagnosed Date Resolved Date Morbid obesity 11/10/2016 11/15/2017 Assessment & Plan (11/10/2016 1:32 PM CDT): Patient is encouraged to continue his weight watchers program and to lose weight with a combination of caloric reduction increased exercise. Body mass index 40.0-44.9, adult 11/10/2016 11/15/2017 Immunizations Immunization Administration Dates Next Due DTP 10/16/1990, 0,1989,06/14 Influenza, Quadrivalent, Mildred l Culture-based MDCK, Preservative Free, Antibiotic Free, Intramuscular 03/18/2022,03/01/2020 Influenza, Quadrivalent, Spl it, Preservative Free, Intradermal 04/12/2015 Influenza, Split 03/01/2010 Influenza, Trivalent, IM (MDV) 03/04/2021,2007 Influenza, Trivalent, Recomb inant, Egg Free, Preservative Free, Antibiotic Free, IM (FLUBLOK) 04/28/2014 Influenza, Unspecified 12/01/2021(Deferr ed: Patient Refused),02/18/2019(Deferred: Patient Refused),02/18/2018,03/17/2017, 016 MMR 04/20/1992,07/24/1990 Meningococcal MCV4P (Menactra) 12/04/2006 OPV 10/16/1990, 0,1989,06/14 Pfizer SARS-CoV-2 Monovalent Vaccination (12+ Yrs) PURPLE 07/25/2020,07/02/2020 TD Preservative Free 10/23/2013,12/08/2003 Tdap 08/21/2020 Surgical History Surgery Date Site/Laterality Comments EYE FOREIGN BODY REMOVAL 11/18/2022 - 12/18/2022 Left Medical History Medical History Date Comments Headache Headaches Hx Other Medical elevated transa minases Hx Other Medical hypercalcemia with repeat ca normal but PTH Family History Medical History Relation Name Comments Hypertension Father Hypertension; Diabetes Maternal Grandfather Diabete s mellitus; Hypertension Maternal Grandfather Hyperte nsion; Stroke Maternal Grandfather Stroke; Diabetes Maternal Grandmother Diabete s mellitus; Heart disease Maternal Grandmother Heart disease; Hypertension Maternal Grandmother Hyperte nsion; Depression Mother Depression; Diabetes Mother Diabetes mellit us; Hypertension Mother Hypertension; Cancer Other 1 Family history of Cancer; Diabetes Other 2 Family history of Diabetes mellitus; Hypertension Other 3 Family history of Hypertension; Osteoarthritis Other 4 Family histor y of Osteoarthritis; Stroke Other 5 Family history of Stroke; Hypertension Paternal Grandfather Hyperte nsion; Stroke Paternal Grandfather Stroke; Relation Name Status Comments Father Maternal Grandfather Maternal Grandmother Mother Other 1 Other 2 Other 3 Other 4 Other 5 Paternal Grandfather Social History Tobacco Use Types Packs/Day Years Used Date Smoking Tobacco: Never Smokeless Tobacco: Never Tobacco Cessation:Counseling Given: Not Answered Alcohol Use Standard Drinks/Week Comments No 0 (1 standard drink = 0.6 oz pur e alcohol) PHQ-2 Answer Date Recorded PHQ-2 Total Score (If total score is 3 or more points, staff should administer the PHQ-9) 0 12/04/2022 Sex and Gender Information Value Date Recorded Sex Assigned at Not on file Legal Sex Male 6:03 PM SPECIAL DISTRIBUTION CLERK Gender Identity Not on file Sexual Orientation Not on file Obstetrics History Last Filed Vital Signs Vital Sign Reading Time Taken Comments Blood Pressure 130/78 12/04/2022 3:07 PM CDT Pulse 84 12/04/2022 3:07 PM CDT Temperature 37 C (98.6 F) 08/13/2018 3:15 PM CDT Respiratory Rate 20 12/04/2022 3:07 PM CDT Oxygen Saturation 96% 12/04/2022 3:07 PM CDT Inhaled Oxygen Concentration - - Weight 135.6 kg (299 lb) 12/04/2022 3:07 PM CDT Height 175.3 cm (5' 9 ) 12/04/2022 3:07 PM CDT Body Mass Index 44.15 12/04/2022 3:07 PM CDT Plan of Treatment Health Maintenance Due Date Last Done Comments Varicella Vaccines (1 of 2 - 13+ 2-dose series) 2002 Hepatitis B Screening 2007 Depression Screening 12/05/2023 12/04/2022, 12/01/2021, 09/08/2021, Additional history exists Regular Well Visit/Exam 18-64 12/05/2023 12/04/2022, 12/01/2021, 11/30/2020, Additional history exists Covid-19 Vaccine (2023- season) 2024 03/18/2022, 03/04/2021, 07/25/2020, Additional history exists Influenza Vaccine (#1) 2024 , 03/04/2021, 03/01/2020, Additional history exists DTaP/Tdap/Td Vaccine (6 - Td or Tdap) 08/21/2030 08/21/2020, 10/23/2013, 12/08/2003, Additional history exists Hepatitis C Screening Completed 08/13/2018 HPV Vaccines Aged Out No longer eligi ble based on patient's age to complete this topic Pneumococcal vaccine <65 Aged Out No longer eligible based on patient's age to complete this topic Procedures Procedure Name Priority Date/Time Associated Diagnosis Comments HEPATITIS PANEL, ACUTE Routine 08/13/2018 3:45 PM CDT Elevated liver enzymes from Last 3 Months or Most Recently Relevant to Health Maintenance Results * Hepatitis panel, acute (08/13/2018 3:45 PM CDT) Hep A IgM Negative Negative [facility] (NINA) Comment:Testing performed by : [facility], [address] [place] [address], [id number] Hep B core IgM Negative Negative [facility] (NINA) Comment:Testing performed by : [address], [address] Hep C Ab Negative Negative [facility] (NINA) Comment:Testing performed by : [facility], [address] [place] [address], [id number] HepBsAg Nonreactive Nonreactive [facility] (NINA) Comment:Testing performed by : [address], [id number] Blood specimen (specimen) 08/13/2018 3:45 PM CDT 08/14/2018 11:12 AM CDT Narrative [facility] ([place]INA) - 08/14/2018 12:47 PM CDT us Doc Carreon MD LAB MICROBIOLOGY - GENERAL OR DERABLES Final Result [facility] (NINA) 1 [facility] [place] [address] from Last 3 Months or Most Recently Relevant to Health Maintenance Insurance [employer] OPEN ACCESS [employer] OPEN ACCESS Care Teams Interactive Marketing Strategist Relationship Specialty Start Date End Date Buddy Castillo MD PCP - General 07/23/13
--- OUTSIDE RECORDS SUMMARY | 2024-07-31 09:35 | XMS_ITS | Referral Summary ---
Author Organization [facility] A Address [address] [place] [address] Care Team Providers Care Solar Photovoltaic Crew Lead Name Role Phone Buddy Castillo MD Primary Care Provider [phone] Allergies No known active allergies Medications fluticasone [...] discussed. Assessment & Plan (04/11/2020 5:40 PM PROFILE GRINDER TECHNICIAN): Patient is encouraged to lose weight with [...] year. Assessment & Plan (04/11/2020 5:39 PM PROFILE GRINDER TECHNICIAN): Continue current supplementation and check level in [...] yearly. Assessment & Plan (04/11/2020 5:39 PM PROFILE GRINDER TECHNICIAN): Patient should reduce sugar and carbs, increase [...] exercise. Assessment & Plan (04/11/2020 5:40 PM PROFILE GRINDER TECHNICIAN): Low risk for ASCVD and therefore recommend [...] weight. Assessment & Plan (04/11/2020 5:40 PM PROFILE GRINDER TECHNICIAN): Blood pressures improved with weight loss. Avoid [...] 07/25/2020,07/02/2020 TD Preservative Free 10/23/2013,12/08/2003 Tdap 08/21/2020 Social History Tobacco Use Types Packs/Day Years [...] on file Legal Sex Male 6:03 PM PROFILE GRINDER TECHNICIAN Gender Identity Not on file Sexual Orientation Not on file Last Filed Vital Signs Vital Sign Reading [...] 12/04/2022 3:07 PM CDT Plan of Treatment Not on file Procedures Procedure Name Priority Date/Time Associated Diagnosis Comments HEPATITIS PANEL, ACUTE Routine 08/13/2018 3:45 PM CDT Elevated liver enzymes from Last 3 Months or Most Recently Relevant to Health Maintenance Results * Hepatitis panel, acute (08/13/2018 3:45 PM CDT) Hep A IgM Negative Negative [facility] (NINA) Comment:Testing performed by : [facility], [address] [place] [address], [id number] Hep B core IgM Negative Negative [facility] (NINA) Comment:Testing performed by : [facility], [address] [place] [address], [id number] Hep C Ab Negative Negative [facility] (NINA) Comment:Testing performed by : [facility], [address] [place] [address], [id number] HepBsAg Nonreactive Nonreactive [facility] (NINA) Comment:Testing performed by : [address], [id number] Blood specimen (specimen) 08/13/2018 3:45 PM CDT 08/14/2018 11:12 AM CDT Narrative [facility] (NINA) - 08/14/2018 12:47 PM CDT us Doc Carreon MD LAB MICROBIOLOGY - GENERAL OR DERABLES Final Result [facility] ([place]INA) 1 [facility] [place] [address] from Last 3 Months or Most Recently Relevant to Health Maintenance Insurance [employer] OPEN ACCESS [employer] OPEN ACCESS Care Teams Solar Photovoltaic Crew Lead Relationship Specialty Start Date End Date Buddy Castillo MD PCP - General 07/23/13
[2024-07-31 13:33] LABS: Hematocrit 47.9 % (42.0-52.0); Hemoglobin 16.1 g/dL (14.0-18.0); Mean Corpuscular HGB Conc 33.6 g/dl (32-36); Mean Corpuscular Hemoglobin 29.8 pg (26-34); Mean Corpuscular Volume 88.5 fl (80-100); Mean Platelet Volume 10.2 fl (7.4-10.4); Platelet Count Result 221 k/mm3 (150-375); Red Blood Count 5.41 M/mm3 (4.6-6.20); Red Cell Distribution Width 12.9 % (11.5-14.5); White Blood Count 8.8 K/mm3 (4.5-10.0)
[2024-07-31 13:54] LABS: Alanine Aminotransferase 43 U/L (6-50); Albumin Level 4.3 g/dL (3.5-5.1); Alkaline Phosphatase 72 U/L (38-126); Aspartate Amino Transferase 77 U/L (17-59); Bilirubin,Total 0.6 mg/dL (0.2-1.3)
[2024-07-31 14:10] LABS: Add Urine Microscopic? YES; Appearance Urine Turbid (Clear); Bilirubin Urine Negative (Negative); Blood Urine Trace (Negative); Color Urine Yellow (Yellow); Glucose Urine UA Negative (Negative); Ketones Urine Negative (Negative); Leukocyte Esterase Ur Negative LEU/UL (Negative); Nitrate Urine Negative (Negative); Protein Urine Negative (Negative); Specific Grav Ur 1.025 (1.001-1.035); Urobilinogen Urine 0.2 mg/dL (<2.0)
[2024-07-31 14:39] LABS: RBC Urine 0-2 /hpf (0-2); WBC Urine 0-3 /hpf (0-3)
[2024-07-31 14:40] LABS: Amorphous Sediment Urine Heavy; Bacteria Urine Trace /hpf; Calcium Oxalate Crystals Urine Present /hpf; Squamous Epithelial Cell Urine None Seen /hpf (Few)
== END 2024-07-31 08:49 | disposition home or self-care (01) ==
LOC: ANHGOSHLAB 08:49
PROVIDERS: Nurse Practitioner; PCP Family Medicine; Visit Provider Family Medicine
DX: R74.8 Abnormal levels of other serum enzymes (principal); K75.81 Nonalcoholic steatohepatitis (NASH); D72.829 Elevated white blood cell count, unspecified; R30.0 Dysuria; Z79.899 Other long term (current) drug therapy
CPT/HCPCS: 36415; 80076; 81001; 85027

== ENCOUNTER 2024-07-31 09:01 | Outpatient (CLI) | payer OTHER, SELFPAY ==
--- NOTE | ~2024-07-31 | XR_ITS ---
EXAMINATION: XR abdomen/kub 1V DATE: 07/31/2024 09:17 INDICATION: Unspecified abdominal pain. Left flank pain. TECHNIQUE: A supine view of the abdomen on 2 radiographs was obtained. COMPARISON: CT abdomen and pelvis 03/22/2023, abdomen radiographs 02/04/2024 FINDINGS: There are no dilated loops of bowel. There is a phlebolith in left pelvis. There is a 5 mm calcification in left pelvis. IMPRESSION: 1. New 5 mm calcification in left pelvis, which may be a distal left ureteral stone. Reviewed, dictated and finalized at location B. IMPRESSION: 1. New 5 mm calcification in left pelvis, which may be a distal left ureteral s tone.
== END 2024-07-31 09:02 | disposition home or self-care (01) ==
PROVIDERS: PCP Nurse Practitioner; Visit Provider Nurse Practitioner
DX: M61.452 Other calcification of muscle, left thigh (principal); R10.9 Unspecified abdominal pain
CPT/HCPCS: 74018

== ENCOUNTER 2024-12-22 08:14 | Outpatient (CLI) | payer OTHER, SELFPAY ==
--- OUTSIDE RECORDS SUMMARY | 2024-12-22 08:18 | XMS_ITS | Clinical Summary ---
Author Organization [facility] A Address [address] [place] [address] Care Team Providers Care Wet Process Miller Name Role Phone Buddy Castillo MD Primary Care Provider [phone] Allergies No known active allergies Medications fluticasone [...] discussed. Assessment & Plan (04/11/2020 5:40 PM STATIONARY ENGINEER SUPERVISOR): Patient is encouraged to lose weight with [...] year. Assessment & Plan (04/11/2020 5:39 PM STATIONARY ENGINEER SUPERVISOR): Continue current supplementation and check level in [...] yearly. Assessment & Plan (04/11/2020 5:39 PM STATIONARY ENGINEER SUPERVISOR): Patient should reduce sugar and carbs, increase [...] exercise. Assessment & Plan (04/11/2020 5:40 PM STATIONARY ENGINEER SUPERVISOR): Low risk for ASCVD and therefore recommend [...] weight. Assessment & Plan (04/11/2020 5:40 PM STATIONARY ENGINEER SUPERVISOR): Blood pressures improved with weight loss. Avoid [...] on file Legal Sex Male 6:03 PM STATIONARY ENGINEER SUPERVISOR Gender Identity Not on file Sexual Orientation [...] 3:07 PM CDT Height 175.3 cm (5' 9) 12/04/2022 3:07 PM CDT Body Mass Index 44.15 12/04/2022 3:07 PM CDT Plan of Treatment Health Maintenance Due Date Last Done Comments Varicella Vaccines (1 of 2 - 13+ 2-dose series) 2002 Hepatitis B Screening 2007 HPV Vaccines (1 - 3-dose SCDM series) 2016 Depression Screening 12/05/2023 12/04/2022, 12/01/2021, 09/08/2021, Additional history exists Regular Well Visit/Exam 18-64 12/05/2023 12/04/2022, 12/01/2021, 11/30/2020, Additional history exists Covid-19 Vaccine ( season) 2024 03/18/2022, 03/04/2021, 07/25/2020, Additional history exists Influenza Vaccine (#1) 2025 , 03/04/2021, 03/01/2020, Additional history exists DTaP/Tdap/Td Vaccine (6 - Td or Tdap) 08/21/2030 08/21/2020, 10/23/2013, 12/08/2003, Additional history exists Hepatitis C Screening Completed 08/13/2018 Pneumococcal vaccine <65 Aged Out No longer [...] [facility] (NINA) Comment:Testing performed by : [address], [id number] Hep B core IgM Negative Negative [facility] (NINA) Comment:Testing performed by : [address], [id number] Hep C Ab Negative Negative [facility] (NINA) Comment:Testing performed by : [facility], [address] [place] [address], [id number] HepBsAg Nonreactive Nonreactive [facility] (NINA) Comment:Testing performed by : [address] [id number] Blood specimen (specimen) 08/13/2018 3:45 PM CDT 08/14/2018 11:12 AM CDT Narrative [facility] (NINA) - 08/14/2018 12:47 PM CDT us Doc Carreon MD LAB MICROBIOLOGY - GENERAL OR DERABLES Final Result [facility] (NINA) 1 [facility] [place] [address] from Last 3 Months or Most Recently Relevant to Health Maintenance Insurance [employer] OPEN ACCESS [employer] OPEN ACCESS Care Teams Wet Process Miller Relationship Specialty Start Date End Date Buddy Castillo MD PCP - General 07/23/13
--- OUTSIDE RECORDS SUMMARY | 2024-12-22 08:18 | XMS_ITS | Referral Summary ---
Author Organization [facility] Address [address] [place] [address] Care Team Providers Care Salesperson Surgical Appliances Name Role Phone Buddy Castillo MD Primary Care Provider [phone] Allergies No known active allergies Medications fluticasone [...] discussed. Assessment & Plan (04/11/2020 5:40 PM DRILL FOREMAN): Patient is encouraged to lose weight with [...] year. Assessment & Plan (04/11/2020 5:39 PM DRILL FOREMAN): Continue current supplementation and check level in [...] yearly. Assessment & Plan (04/11/2020 5:39 PM DRILL FOREMAN): Patient should reduce sugar and carbs, increase [...] exercise. Assessment & Plan (04/11/2020 5:40 PM DRILL FOREMAN): Low risk for ASCVD and therefore recommend [...] weight. Assessment & Plan (04/11/2020 5:40 PM DRILL FOREMAN): Blood pressures improved with weight loss. Avoid [...] on file Legal Sex Male 6:03 PM DRILL FOREMAN Gender Identity Not on file Sexual Orientation [...] BRICE LITTLE (NINA) Comment:Testing performed by : [facility], [address] [place] [address], [id number] Hep B core IgM Negative Negative BRICE LITTLE (NINA) Comment:Testing performed by : [facility], [address] [place] [address], [id number] Hep C Ab Negative Negative BRICE LITTLE (NINA) Comment:Testing performed by : [facility], [address] [place] [address], [id number] HepBsAg Nonreactive Nonreactive BRICE LITTLE (NINA) Comment:Testing performed by : [address], [id number] Blood specimen (specimen) 08/13/2018 3:45 PM CDT 08/14/2018 11:12 AM CDT Narrative BRICE LITTLE (NINA) - 08/14/2018 12:47 PM CDT us Doc Carreon MD LAB MICROBIOLOGY - GENERAL OR DERABLES Final Result BRICE LITTLE (NINA) [facility] Department of [employer] [place] [address] from Last 3 Months or Most Recently Relevant to Health Maintenance Insurance [employer] OPEN ACCESS Advice [employer] OPEN ACCESS Care Teams Salesperson Surgical Appliances Relationship Specialty Start Date End Date Buddy Castillo MD PCP - General 07/23/13
[2024-12-22 15:11] LABS: Hematocrit 45.1 % (42.0-52.0); Hemoglobin 15.6 g/dL (14.0-18.0); Mean Corpuscular HGB Conc 34.6 g/dl (32-36); Mean Corpuscular Hemoglobin 30.1 pg (26-34); Mean Corpuscular Volume 86.9 fl (80-100); Platelet Count Result 212 k/mm3 (150-375); Red Blood Count 5.19 M/mm3 (4.6-6.20); White Blood Count 7.8 K/mm3 (4.5-10.0)
[2024-12-22 15:20] LABS: Alanine Aminotransferase 50 U/L (6-50); Albumin Level 4.3 g/dL (3.5-5.1); Alkaline Phosphatase 72 U/L (38-126); Anion Gap 7 mmol/L (4-12); Aspartate Amino Transferase 93 U/L (17-59); Bilirubin,Total 0.8 mg/dL (0.2-1.3); Blood Urea Nitrogen 10 mg/dL (9-20); Calcium 9.0 mg/dL (8.4-10.2); Carbon Dioxide 26 mmol/L (22-30); Chloride 105 mmol/L (98-107); Cholesterol 181 mg/dL (0-200); Estimated Glomerular Filt Rate > 60; Glucose 99 mg/dL (65-110); HDL Direct 37 mg/dL; Potassium 3.6 mmol/L (3.4-5.0); Sodium 138 mmol/L (137-145); Total Protein 7.2 g/dL (6.3-8.2); Triglycerides 152 mg/dL (<150)
[2024-12-22 15:59] LABS: Thyroid Stimulating Hormone 1.940 uIU/mL (0.465-4.680)
[2024-12-22 16:44] LABS: Hemoglobin A1C 5.4 % (<5.7)
[2024-12-25 19:08] LABS: 1,25-Dihydroxy, Vitamin D-2 <10 pg/mL (.); 1,25-Dihydroxy, Vitamin D-3 75 pg/mL (.); Total 1,25-Dihydroxy,Vitamin D 76 pg/mL (.)
== END 2024-12-22 08:15 | disposition home or self-care (01) ==
LOC: ANHGOSHLAB 08:15
PROVIDERS: PCP Family Medicine; Visit Provider Family Medicine
DX: K75.81 Nonalcoholic steatohepatitis (NASH) (principal); I10 Essential (primary) hypertension; R74.8 Abnormal levels of other serum enzymes; E66.9 Obesity, unspecified; R73.09 Other abnormal glucose; E55.9 Vitamin D deficiency, unspecified; Z79.899 Other long term (current) drug therapy
CPT/HCPCS: 36415; 80053; 80061; 82652; 83036; 84443; 85027